=== PATIENT | female | born 1985 | race African-American/Black ===

== ENCOUNTER 2020-06-21 09:42 | Emergency (ER) | payer OTHER ==
[~2020-06-21] VITALS: Ht 165.1 cm; Wt 108.9 kg
[2020-06-21] MEDS ORDERED: PNV 29-1 TABLE1 EACH PO (09:54)
[2020-06-21 10:30] VITALS: BP 149/89
== END 2020-06-21 10:30 | disposition home or self-care (01) ==
LOC: M.ERS 09:42
DX: O26.893 Other specified pregnancy related conditions, third trimester (principal); K14.9 Disease of tongue, unspecified; Z79.899 Other long term (current) drug therapy; Z3A.34 34 weeks gestation of pregnancy